=== PATIENT | male | born 1955 ===

== ENCOUNTER 2022-08-24 17:39 | Inpatient (IN) ==
[2022-08-24 19:11] LABS: Hematocrit 47 % (42-52); Hemoglobin 15.5 g/dL (14.0-18.0); Mean Corpuscular HGB Conc 33 g/dL (31-36); Mean Corpuscular Hemoglobin 28 pg (27-31); Mean Corpuscular Volume 86 fL (80-94); Mean Platelet Volume 9.1 fL (7.4-10.4); Platelet Count 289 10^3/uL (150-450); Red Blood Count 5.52 10^6 /uL (4.18-5.48); Red Cell Distribution Width 14 % (10-15); White Blood Count 21.9 10^3/uL (3.5-10.8)
[2022-08-24] MEDS ORDERED: Piperacillin/Tazobac ADVAN 3.375 GM in NS 0.9% 100 ml BAG 100 ML IV ONE (19:20)
[2022-08-24] MEDS ORDERED: Lactated Ringers 1000 ml BAG 1,000 ML IV ONE (19:20)
[2022-08-24] MEDS ORDERED: Pantoprazole VIAL 40 MG VIAL IV ONE (19:32)
[2022-08-24] MEDS ORDERED: Pantoprazole 80 mg in NS BAG 80 MG/250 ML BAG IV ONE (19:32)
[2022-08-24 19:50] LABS: Albumin 4.2 g/dL (3.2-5.2); Albumin/Globulin Ratio 1.5 (1-3); Calcium 9.7 mg/dL (8.6-10.3); Globulin 2.8 g/dL (2-4); Potassium 3.8 mmol/L (3.5-5.0); Total Bilirubin 0.7 mg/dL (0.2-1.0); eGFR CKD-EPI 96.8 (>60)
[2022-08-24 21:03] LABS: INR 1.18 (0.89-1.11)
[2022-08-24] MEDS ORDERED: Iohexol 350 (CONTRAST) 500 ML MDV IV ONE (21:25)
[2022-08-24 21:47] LABS: ABS Lymphocytes 0.6 10^3/ul (1.0-4.8); ABS Monocytes 0.9 10^3/ul (0-0.8); ABS Neutrophils 20.4 10^3/ul (1.5-7.7); Lymphocyte % 2.7 %
[2022-08-25] MEDS ORDERED: Metoclopramide 5 MG/ML VIAL (10 mg) IV SLOW PU ONE (00:01)
[2022-08-25] MEDS ORDERED: Ondansetron 4 mg VIAL 2 MG/ML 2 ml VIAL IV PRN (00:29)
[2022-08-25] MEDS ORDERED: Dextrose 50% Syringe 50 ml 25 GM/50 ML SYRINGE IV PUSH PRN (00:37)
[2022-08-25] MEDS: Lactated Ringers 1000 ml BAG 1,000 ML IV SCH ×2 (00:50→17:53)
[2022-08-25] MEDS ORDERED: Zosyn per Pharmacy NOTE FOLLOW UP SCH (02:00)
[2022-08-25] MEDS: ZOSYN 3.375 GM Q8H per EXTENDED INFUSION IV SCH ×3 (02:48→18:08)
[2022-08-25] MEDS: Pantoprazole 80 mg in NS BAG 80 MG/250 ML BAG IV SCH ×5 (03:22→23:14)
[2022-08-25 06:26] LABS: Hematocrit 41 % (42-52); Hemoglobin 13.4 g/dL (14.0-18.0); Mean Corpuscular HGB Conc 33 g/dL (31-36); Mean Corpuscular Hemoglobin 28 pg (27-31); Mean Corpuscular Volume 85 fL (80-94); Mean Platelet Volume 8.7 fL (7.4-10.4); Platelet Count 268 10^3/uL (150-450); Red Blood Count 4.77 10^6 /uL (4.18-5.48); Red Cell Distribution Width 14 % (10-15); White Blood Count 22.1 10^3/uL (3.5-10.8)
[2022-08-25 06:42] LABS: ABS Lymphocytes 0.9 10^3/ul (1.0-4.8); ABS Monocytes 1.8 10^3/ul (0-0.8); ABS Neutrophils 19.4 10^3/ul (1.5-7.7); Lymphocyte % 4.3 %
[2022-08-25 07:01] LABS: Potassium 3.4 mmol/L (3.5-5.0); eGFR CKD-EPI 97.5 (>60)
[2022-08-25] MEDS: KCL 10 MEQ/50 ML IVPREMIX 10 MEQ/50 ML BAG IV SCH ×2 (08:13→09:15)
[2022-08-25] MEDS ORDERED: chlorproMAZINE 25 MG/ML 2 ML (50 MG) IV ONE (17:14)
[2022-08-25 17:15] LABS: ABS Basophils 0.2 10^3/ul (0-0.2); ABS Lymphocytes 1.2 10^3/ul (1.0-4.8); ABS Monocytes 1.3 10^3/ul (0-0.8); ABS Neutrophils 17.4 10^3/ul (1.5-7.7); Eosinophil % 0.2 %; Hematocrit 39 % (42-52); Hemoglobin 12.6 g/dL (14.0-18.0); Lymphocyte % 5.8 %; Mean Corpuscular HGB Conc 32 g/dL (31-36); Mean Corpuscular Hemoglobin 28 pg (27-31); Mean Corpuscular Volume 86 fL (80-94); Mean Platelet Volume 8.8 fL (7.4-10.4); Platelet Count 233 10^3/uL (150-450); Red Blood Count 4.58 10^6 /uL (4.18-5.48); Red Cell Distribution Width 15 % (10-15); White Blood Count 20.1 10^3/uL (3.5-10.8)
[2022-08-25] MEDS ORDERED: chlorproMAZINE INJ 25 MG in NS 0.9% 50 ML 50 ML IV ONE (18:00)
[2022-08-25] MEDS: hydrALAZINE 20 mg/ml 1 ML Vial IV IV SLOW PU SCH (18:08)
[2022-08-25] MEDS: Metoprolol Tartrate 5 mg VIAL 5 ml VIAL (1 mg/ml) IV SCH (18:09)
[2022-08-26] MEDS: Metoprolol Tartrate 5 mg VIAL 5 ml VIAL (1 mg/ml) IV SCH ×4 (00:05→18:45)
[2022-08-26] MEDS: hydrALAZINE 20 mg/ml 1 ML Vial IV IV SLOW PU SCH ×4 (00:05→18:43)
[2022-08-26 00:25] LABS: Hematocrit 35 % (42-52); Hemoglobin 11.3 g/dL (14.0-18.0)
[2022-08-26] MEDS: ZOSYN 3.375 GM Q8H per EXTENDED INFUSION IV SCH ×3 (02:03→20:03)
[2022-08-26 05:33] LABS: Hematocrit 35 % (42-52); Hemoglobin 11.8 g/dL (14.0-18.0); Mean Corpuscular HGB Conc 34 g/dL (31-36); Mean Corpuscular Hemoglobin 29 pg (27-31); Mean Corpuscular Volume 86 fL (80-94); Platelet Count 213 10^3/uL (150-450); Red Blood Count 4.12 10^6 /uL (4.18-5.48); Red Cell Distribution Width 15 % (10-15); White Blood Count 11.7 10^3/uL (3.5-10.8)
[2022-08-26 05:40] LABS: ABS Basophils 0.1 10^3/ul (0-0.2); ABS Eosinophils 0.2 10^3/ul (0-0.6); ABS Lymphocytes 1.5 10^3/ul (1.0-4.8); Eosinophil % 1.6 %; Lymphocyte % 12.7 %
[2022-08-26 05:51] LABS: Calcium 8.7 mg/dL (8.6-10.3); Potassium 3.2 mmol/L (3.5-5.0)
[2022-08-26] MEDS: Pantoprazole 80 mg in NS BAG 80 MG/250 ML BAG IV SCH ×2 (06:10→18:30)
[2022-08-26] MEDS: KCL 20 MEQ/100 ML IVPREMIX 20 MEQ/100 ML BAG IV SCH ×2 (08:40→10:40)
[2022-08-26 10:28] LABS: C Reactive Protein 35.87 mg/L (<8.01); Magnesium 1.7 mg/dL (1.9-2.7)
[2022-08-26 10:57] LABS: Urine Appearance Cloudy; Urine Bilirubin Negative (Negative); Urine Blood Negative (Negative); Urine Color Amber; Urine Glucose Negative (Negative); Urine Ketones Trace (Negative); Urine Nitrite Negative (Negative); Urine Protein 1+(30 mg/dL) (Negative); Urine Specific Gravity 1.034 (1.002-1.030); Urine Urobilinogen Negative (Negative)
[2022-08-26 11:09] LABS: Urine Amorphous Crystals Present (Absent); Urine Bacteria Absent (Absent); Urine Red Blood Cell Absent (Absent); Urine White Blood Cell Trace(0-5/hpf) (Absent)
[2022-08-26 11:21] LABS: Erythrocyte Sed Rate 19 mm/Hr (0-19)
[2022-08-26] MEDS ORDERED: Magnesium Sulfate 2 gm BAG 2 GM/50 ML BAG IVPB ONE (11:35)
[2022-08-26] MEDS: Lactated Ringers 1000 ml BAG 1,000 ML IV SCH (14:05)
[2022-08-27] MEDS: hydrALAZINE 20 mg/ml 1 ML Vial IV IV SLOW PU SCH ×5 (00:29→23:58)
[2022-08-27] MEDS: Metoprolol Tartrate 5 mg VIAL 5 ml VIAL (1 mg/ml) IV SCH ×5 (01:22→23:58)
[2022-08-27] MEDS: ZOSYN 3.375 GM Q8H per EXTENDED INFUSION IV SCH ×2 (01:51→10:32)
[2022-08-27] MEDS: Pantoprazole 80 mg in NS BAG 80 MG/250 ML BAG IV SCH ×3 (04:44→21:37)
[2022-08-27 07:10] LABS: ABS Basophils 0.1 10^3/ul (0-0.2); ABS Eosinophils 0.4 10^3/ul (0-0.6); ABS Lymphocytes 1.7 10^3/ul (1.0-4.8); ABS Monocytes 0.7 10^3/ul (0-0.8); ABS Neutrophils 7.3 10^3/ul (1.5-7.7); Eosinophil % 4.3 %; Hematocrit 39 % (42-52); Hemoglobin 12.7 g/dL (14.0-18.0); Lymphocyte % 16.6 %; Mean Corpuscular HGB Conc 33 g/dL (31-36); Mean Corpuscular Hemoglobin 28 pg (27-31); Mean Corpuscular Volume 86 fL (80-94); Mean Platelet Volume 8.6 fL (7.4-10.4); Nucleated Red Blood Cells % 0.1; Platelet Count 221 10^3/uL (150-450); Red Blood Count 4.47 10^6 /uL (4.18-5.48); Red Cell Distribution Width 15 % (10-15); White Blood Count 10.2 10^3/uL (3.5-10.8)
[2022-08-27 07:41] LABS: Calcium 8.9 mg/dL (8.6-10.3); Potassium 3.3 mmol/L (3.5-5.0); eGFR CKD-EPI 97.1 (>60)
[2022-08-27] MEDS: KCL 20 MEQ/100 ML IVPREMIX 20 MEQ/100 ML BAG IV SCH ×2 (08:20→12:23)
[2022-08-27 08:24] LABS: Phosphorus 3.4 mg/dL (2.5-5.0)
[2022-08-27] MEDS: D5W 1/2 NS 1000 ml BAG 1,000 ML IV SCH (15:31)
[2022-08-27] MEDS ORDERED: Midazolam 5 mg/5 ml VIAL 1 mg/ml 5 ml VIAL (5 mg) ONE (15:49)
[2022-08-27] MEDS ORDERED: fentaNYL 100 mcg/2 ml 50 MCG/ML VIAL ONE (15:49)
[2022-08-27 15:53] LABS: Calcium 8.6 mg/dL (8.6-10.3); Potassium 3.6 mmol/L (3.5-5.0); eGFR CKD-EPI 104.1 (>60)
[2022-08-28] MEDS: Pantoprazole 80 mg in NS BAG 80 MG/250 ML BAG IV SCH ×2 (04:14→10:18)
[2022-08-28] MEDS: D5W 1/2 NS 1000 ml BAG 1,000 ML IV SCH (05:52)
[2022-08-28] MEDS: hydrALAZINE 20 mg/ml 1 ML Vial IV IV SLOW PU SCH ×2 (05:52→12:47)
[2022-08-28] MEDS: Metoprolol Tartrate 5 mg VIAL 5 ml VIAL (1 mg/ml) IV SCH ×2 (05:52→12:47)
[2022-08-28 06:24] LABS: ABS Basophils 0.1 10^3/ul (0-0.2); ABS Eosinophils 0.5 10^3/ul (0-0.6); ABS Lymphocytes 1.3 10^3/ul (1.0-4.8); ABS Monocytes 0.6 10^3/ul (0-0.8); ABS Neutrophils 6.8 10^3/ul (1.5-7.7); Eosinophil % 5.3 %; Hematocrit 37 % (42-52); Hemoglobin 12.6 g/dL (14.0-18.0); Mean Corpuscular HGB Conc 34 g/dL (31-36); Mean Corpuscular Hemoglobin 29 pg (27-31); Mean Corpuscular Volume 85 fL (80-94); Mean Platelet Volume 8.9 fL (7.4-10.4); Platelet Count 217 10^3/uL (150-450); Red Cell Distribution Width 14 % (10-15); White Blood Count 9.2 10^3/uL (3.5-10.8)
[2022-08-28 06:39] LABS: Calcium 8.3 mg/dL (8.6-10.3); Potassium 3.1 mmol/L (3.5-5.0); eGFR CKD-EPI 106.8 (>60)
[2022-08-28] MEDS: KCL 20 MEQ/100 ML IVPREMIX 20 MEQ/100 ML BAG IV SCH ×2 (08:10→10:16)
[2022-08-28 13:05] LABS: Calcium 8.4 mg/dL (8.6-10.3); Potassium 3.6 mmol/L (3.5-5.0); eGFR CKD-EPI 103.1 (>60)
[2022-08-28 17:00] VITALS: BP 164/80
== END 2022-08-28 16:50 | DRG 391 ==
LOC: ED 17:39 → EDHOLD 23:56 → SUATTDRO 23:56 → EDHOLD 08-25 12:18 → ICU 08-25 14:39 → MEDTELE 08-26 15:53
PROVIDERS: ADMIT Internal Medicine; ATTEND Hospitalist